=== PATIENT | female | born 1975 | race Two or more races ===

== ENCOUNTER 2018-01-01 23:13 | Emergency (ER) | payer BC, OTHER ==
[~2018-01-01] VITALS: Ht 162.6 cm; Wt 51.3 kg
--- NOTE | 2018-01-01 23:13 | NUR ---
PT BB C/O LLQ PAIN X3 HOURS 03/15 NONRADIATING. VSS NAD A/OX4 WITH AT BEDSIDE. WILL CONTINUE TO MONITOR FOR ANY CHANGES DURING THE SHIFT.
[2018-01-02 00:13] LABS: APPEARANCE,URINE CLEAR (CLEAR); BILIRUBIN,URINE NEGATIVE (NEGATIVE); BLOOD, URINE NEGATIVE Ery/uL (NEGATIVE); COLOR,URINE YELLOW (YELLOW); KETONES,URINE 1+ (NEGATIVE); LEUKOCYTE ESTERASE ,URINE NEGATIVE (NEGATIVE); NITRITE, URINE NEGATIVE (NEGATIVE); PROTEIN,URINE NEGATIVE (NEGATIVE); UGLUCOSE NEGATIVE (NEGATIVE); UROBILINOGEN,URINE 0.2 EU/dL (0.2)
[2018-01-02 00:15] LABS: BASOPHILS % (AUTO) 0.3 % (0.0-2.0); EOSINOPHILS % (AUTO) 1.3 % (0.0-6.0); HEMATOCRIT 35 % (33-45); HEMOGLOBIN 12.3 g/dL (11.5-14.8); MEAN CORPUSCULAR HGB CONC 35 g/dl (31.0-36.0); MEAN CORPUSCULAR VOLUME 89 fL (82-100); MONOCYTES # (AUTO) 0.7 /CMM (0.1-1.30); MONOCYTES % (AUTO) 6.9 % (2.0-12.0); NEUTROPHILS # (AUTO) 6.6 /CMM (1.8-8.9); NEUTROPHILS % (AUTO) 70.5 % (43.0-81.0); PLATELET COUNT (AUTO) 239 /CMM (150-450); RDW COEFFICIENT OF VARIATION 12.3 (11.5-15.0); RED BLOOD CELL COUNT(AUTO) 3.91 MIL/uL (4.0-5.2); WHITE BLOOD COUNT (AUTO) 9.4 K/uL (4.3-11.0)
[2018-01-02 00:21] LABS: BACTERIA,URINE Few /HPF (None Seen); MUCUS,URINE Moderate /LPF (None Seen); SQUAMOUS EPITHELIAL CELL,UR Few /HPF (None Seen); WBC,URINE 0-2 /HPF (0-3)
[2018-01-02 00:29] LABS: CALCIUM, SERUM 8.6 mg/dL (8.5-10.1); CREATININE 0.7 mg/dL (0.6-1.3); POTASSIUM 3.9 mmol/L (3.5-5.1)
[2018-01-02 00:35] LABS: ALBUMIN 3.6 g/dL (3.4-5.0); BILIRUBIN,DIRECT 0.2 mg/dL (0.0-0.2); BILIRUBIN,TOTAL 1.4 mg/dL (0.2-1.0); TOTAL PROTEIN, SERUM 6.6 g/dL (6.4-8.2)
--- NOTE | 2018-01-02 00:53 | NUR ---
PT OFF TO CT
--- NOTE | 2018-01-02 01:02 | NUR ---
PT BACK FROM CT
--- NOTE | 2018-01-02 01:32 | NUR ---
AWAITING CT RESULTS. PT IS COMFORTABLE IN BED.
--- NOTE | 2018-01-02 02:22 | NUR ---
CALLING SUJIT RE: PT'S CT. CT BEING READ AT THIS TIME.
[2018-01-02 03:07] VITALS: BP 115/71
== END 2018-01-02 03:08 | disposition home or self-care (01) ==
LOC: ER 23:17
DX: R10.32 Left lower quadrant pain (principal)
CPT/HCPCS: 36415; 80048-TC; 80076-TC; 81000-TC; 83690-TC; 84703-TC; 85025-TC; A4606; Z7610